=== PATIENT | female | born 1955 | race Asian ===

== ENCOUNTER 2021-11-01 09:30 | Outpatient (CLI) | payer OTHER ==
[~2021-11-01 09:30] MED LIST: LISI-487 PO
== END 2021-11-01 23:59 | disposition home or self-care (01) ==
LOC: MLB 09:30 → EDSTATUS 11-02 15:50
PROVIDERS: ATTEND Internal Medicine Gastroenterology
DX: Z01.812 Encounter for preprocedural laboratory examination (principal); Z20.822 Contact with and (suspected) exposure to COVID-19

== ENCOUNTER 2022-07-19 08:59 | Day surgery (SDC) | payer OTHER ==
[~2022-07-19] VITALS: Ht 157.5 cm; Wt 68.0 kg
[2022-07-19] MEDS ORDERED: MIDAZOLAM 5 MG/5 ML VIAL ONE (09:57)
[2022-07-19] MEDS ORDERED: fentaNYL citrate 0.05 MG/ML VIAL ONE (09:57)
[2022-07-19] MEDS ORDERED: MIDAZOLAM 2 MG/2 ML VIAL IVP ONE (10:40)
== END 2022-07-19 11:00 | disposition home or self-care (01) ==
LOC: MDS 08:59 → MMU 08:59 → MDS 11:00
PROVIDERS: ATTEND Internal Medicine Gastroenterology
DX: K21.9 Gastro-esophageal reflux disease without esophagitis (principal); K29.70 Gastritis, unspecified, without bleeding; I10 Essential (primary) hypertension; E78.5 Hyperlipidemia, unspecified; Z86.010 Personal history of colon polyps; Z79.899 Other long term (current) drug therapy; Z20.822 Contact with and (suspected) exposure to COVID-19
CPT/HCPCS: 36415; 43239; 86677; 87426; J2250; J3010